=== PATIENT | male | born 1970 | race Caucasian/White ===

== ENCOUNTER 2023-06-26 07:36 | Inpatient (IN) ==
[2023-06-26 07:49] VITALS: BMI 28.7
--- NOTE | 2023-06-26 07:52 | EKG ---
Test Reason : cp Blood Pressure : */* mmHG Vent. Rate : 81 BPM Atrial Rate : 81 BPM P-R Int : 154 ms QRS Dur : 86 ms QT Int : 372 ms P-R-T Axes : 68 60 30 degrees QTc Int : 432 ms Normal sinus rhythm Nonspecific ST abnormality Abnormal ECG No previous ECGs available Confirmed by Igor Paul ([id number]) on 06/26/2023 8:32:00 AM Referred By: Confirmed By: Igor Paul
--- NOTE | 2023-06-26 08:28 | DR.CP ---
HPI Time Seen Time Seen by Provider: 06/26/23 08:07 PCP Primary Care Physician: NFD Complaint Chief Complaint Doctor Comments: 53 y/o male presents for evaluation. Has been having chest discomfort off and on over the past 2 weeks. Nothing brings it on. Has sharp pain, left anterior chest. Does not radiate. Nothing makes it better, nothing makes it worse. Has some associated left arm tingling numbness, diaphoresis at times. Patient with history of hypertension, has been off blood pressure medicines for a bit. Still smokes. No fever, chills, cough. No bowel or bladder issues. 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 Patient also states he has had frontal headache x 1 week. Hx of HTN and hasn't been taking medications. COVID-19 Coronavirus risk:travel/contact w/high risk person: No Has patient experienced Coronavirus symptoms: No Reviewed Nurses Notes Review: Yes Source History Provided: Patient Mode of Arrival Mode of Arrival: Ambulatory Timing Onset of Chief Complaint: 06/19/23 Location Chest Pain Radiation Location: None Associated Signs and Symptoms Associated Signs and Symptoms: None PMH PMH Past Medical History: Yes Past Medical History: Hypertension Past Surgical History: Yes Surgical History: Ortho Surgery Family History History of Family Medical Conditions: Yes Family Medical History: Diabetes Mellitus, Coronary Artery Disease and Hypertension Social History Does patient currently use any type of tobacco product: Yes Have you used tobacco products in the last 12 months: Yes Type of Tobacco Use: Cigarettes Does any household member use tobacco: Yes Alcohol Use: Occasionally Do you use any recreational Drugs:: No Lives With: Alone Lives Where: motel Travel Risk Coronavirus risk:travel/contact w/high risk person: No Has patient experienced Coronavirus symptoms: No Infectious screening In the last 2 months have you had wt loss of >10#?: NO Have you had fever, night sweats or hemotysis?: No Have you traveled outside the country in the last 6 months?: No Isolation: Standard ROS Review of Systems Constitutional: Diaphoresis Eyes: No Symptoms Reported ENTM: No Symptoms Reported Respiratoy: No Symptoms Reported Cardiovascular: See HPI Gastrointestinal/Abdominal: No Symptoms Reported Genitourinary: No Symptoms Reported Neurological: No Symptoms Reported Musculoskeletal: No Symptoms Reported Integumentary: No Symptoms Reported All Other Systems: Reviewed and Negative PE Vitals Vitals: Vital Signs Temperature 98.2 F Pulse Rate 75 Pulse Rate 67 Pulse Rate 65 Pulse Rate 62 Pulse Rate 75 Pulse Rate 69 Pulse Rate 68 Pulse Rate 74 Pulse Rate 73 Pulse Rate 75 Pulse Rate 70 Pulse Rate 70 Pulse Rate 75 Pulse Rate 82 Pulse Rate 80 Pulse Rate 82 Pulse Rate 78 Pulse Rate 76 Pulse Rate 77 Pulse Rate 86 Pulse Rate 84 Respiratory Rate 14 Respiratory Rate 10 Respiratory Rate 10 Respiratory Rate 9 Respiratory Rate 23 Respiratory Rate 18 Respiratory Rate 14 Respiratory Rate 16 Respiratory Rate 20 Respiratory Rate 18 Respiratory Rate 19 Respiratory Rate 30 Respiratory Rate 31 Respiratory Rate 20 Respiratory Rate 12 Respiratory Rate 21 Respiratory Rate 13 Respiratory Rate 30 Respiratory Rate 20 Blood Pressure 151/91 Blood Pressure 165/106 Blood Pressure 178/102 Blood Pressure 178/107 Blood Pressure 190/112 Blood Pressure 183/114 Blood Pressure 176/103 Blood Pressure 175/101 Blood Pressure 175/101 Blood Pressure 186/93 Blood Pressure 186/93 Blood Pressure 199/111 Blood Pressure 199/11 Blood Pressure 182/101 Blood Pressure 182/101 Blood Pressure 171/107 O2 Sat by Pulse Oximetry 96 O2 Sat by Pulse Oximetry 99 O2 Sat by Pulse Oximetry 99 O2 Sat by Pulse Oximetry 99 O2 Sat by Pulse Oximetry 99 O2 Sat by Pulse Oximetry 97 O2 Sat by Pulse Oximetry 99 O2 Sat by Pulse Oximetry 100 O2 Sat by Pulse Oximetry 100 O2 Sat by Pulse Oximetry 96 O2 Sat by Pulse Oximetry 98 O2 Sat by Pulse Oximetry 98 O2 Sat by Pulse Oximetry 97 O2 Sat by Pulse Oximetry 99 O2 Sat by Pulse Oximetry 99 O2 Sat by Pulse Oximetry 99 O2 Sat by Pulse Oximetry 98 O2 Sat by Pulse Oximetry 97 O2 Sat by Pulse Oximetry 99 O2 Sat by Pulse Oximetry 99 O2 Sat by Pulse Oximetry 98 General General Appearance: Alert and In No Apparent Distress Eyes Eye exam: PERRL and EOMI ENT ENT Exam: Mucous Membranes Moist Chest Chest Inspection: Normal Inspection; negative Tenderness Respiratory Respiratory Exam: Normal Lung Sounds Bilat; negative Accessory Muscle Use or Respiratory Distress Cardiovascular Cardiovascular Exam: Regular Rate, Normal Rhythm and Normal Heart Sounds Abdominal Exam Abdominal Exam: Normal Bowel Sounds and Soft; negative Tenderness Extremities Extremities Exam: Normal Inspection; negative Edema Neurologic Neurological Exam: Alert, Oriented X3 and CN II-XII Intact; negative Motor Sensory Deficit Skin Skin Exam: Warm and Dry COURSE Treatment Treatment: 53-year-old male with intermittent chest pain over the past 2-weeks. Currently doing better. Job made him come in to get looked at, got sent home early yesterday. Physical exam benign. BP elevated. Work-up initiated. Patient given IV hydralazine. 1005 -EKG without obvious ischemic changes. Chest x-ray with COPD changes, nothing acute. Labs overall acceptable except for elevated troponin, 140. Has been having chest pain off and on for the past 2 weeks, was worsened at 230 this AM, better on arrival to the ER. BP down a bit with the hydralazine, still elevated. Given metoprolol 5 mg IV, given PO ASA. BP still elevated. Patient remains free of chest pain. Recommend admission for further treatment of his hypertensive urgency and further evaluation for his probable recent non-STEMI. Discussed with Dr Torres, internal salesperson, accepts the admission. [facility] Labs Reviewed Laboratory Results Reviewed?: Yes 06/26/23 08:11 06/26/23 08:11 Laboratory: WBC 7.6 X10^3/uL (3.6-10.0) 06/26/23 08:11 RBC 5.62 X10^6/uL (4.7-6.0) 06/26/23 08:11 Hgb 17.7 g/dL (13.5-18.0) 06/26/23 08:11 Hct 52.1 % (42.0-54.0) 06/26/23 08:11 MCV 92.8 fL (80.0-100.0) 06/26/23 08:11 MCH 31.5 pg (27.0-34.0) 06/26/23 08:11 MCHC 34.0 g/dL (33.0-35.0) 06/26/23 08:11 RDW 14.9 % (11.6-16.5) 06/26/23 08:11 Plt Count 272 X10^3/uL (150.0-450.0) 06/26/23 08:11 MPV 8.0 fL (7.4-11.0) 06/26/23 08:11 Neut % (Auto) 55.2 % (42.0-75.0) 06/26/23 08:11 Lymph % (Auto) 34.0 % (21.0-51.0) 06/26/23 08:11 [place] % (Auto) 7.4 % (0.0-13.0) 06/26/23 08:11 Eos % (Auto) 2.8 % (0.9-2.9) 06/26/23 08:11 Baso % (Auto) 0.6 % (0.2-1.0) 06/26/23 08:11 Neut # (Auto) 4.2 x10^3/uL (2.2-4.8) 06/26/23 08:11 Lymph # (Auto) 2.6 X10^3/uL (1.3-2.9) 06/26/23 08:11 [place] # (Auto) 0.6 x10^3/uL (0.3-0.8) 06/26/23 08:11 Eos # (Auto) 0.2 x10^3/uL (0.0-0.2) 06/26/23 08:11 Baso # (Auto) 0.0 X10^3/uL (0.0-0.1) 06/26/23 08:11 Absolute Nucleated RBC 0.1 /100WBC 06/26/23 08:11 Sodium 140 mmol/L (136-145) 06/26/23 08:11 Corrected Sodium 140 mmol/L (136-145) 06/26/23 08:11 Potassium 3.8 mmol/L (3.5-5.1) 06/26/23 08:11 Chloride 105 mmol/L (98-107) 06/26/23 08:11 Carbon Dioxide 27.6 mmol/L (21-32) 06/26/23 08:11 BUN 10 mg/dL (7-18) 06/26/23 08:11 Creatinine 0.95 mg/dL (0.70-1.30) 06/26/23 08:11 Est GFR (MDRD) Af Amer > 60 (>60) 06/26/23 08:11 Est GFR (MDRD) Non-Af > 60 (>60) 06/26/23 08:11 Glucose 117 mg/dL (65-99) H 06/26/23 08:11 Calcium 8.6 mg/dL (8.5-10.1) 06/26/23 08:11 Corrected Calcium TNP 06/26/23 08:11 Total Bilirubin 0.50 mg/dL (0.2-1.0) 06/26/23 08:11 AST 23 Units/L (15-37) 06/26/23 08:11 ALT 19 Units/L (12-78) 06/26/23 08:11 Alkaline Phosphatase 76 Units/L (46-116) 06/26/23 08:11 Troponin I High Sens 139.6 ng/L (4.0-60.0) H* 06/26/23 10:42 Total Protein 7.0 g/dL (6.4-8.2) 06/26/23 08:11 Albumin 3.4 g/dL (3.4-5.0) 06/26/23 08:11 Globulin 3.6 g/dL (2.5-4.5) 06/26/23 08:11 Albumin/Globulin Ratio 0.9 Ratio (1.1-2.1) L 06/26/23 08:11 Lipase 102 Units/L (73-393) 06/26/23 08:11 + elevated troponin - 140. XRAY XRAY Interpreted by: Self X-ray Results: Chest x-ray with COPD changes, no acute abnormalities EKG Rate: 81 [place]: Normal Rhythm: NSR ST: Normal Opioid Opioid Risk Tool Age (Ang box if 16-45): No History of Preadolescent Sexual Abuse: No Total: 0 Total Score Risk Category: Low Risk Copyright: [place] predicting aberrant behaviors Discharge Plan Diagnosis Discharge Problem: Hypertensive urgency, Recent non-ST elevation myocardial infarction (NSTEMI) Discharge Plan Patient Disposition: 09 ADMITTED INPATIENT Condition: Stable Orders to Discharge Patient Discharge Orders: Transfer (Routine); Ordered 06/26/23 Ordered By: Torres Pak
[2023-06-26] MEDS ORDERED: APRESOLINE INJ 20 MG VIAL IVP ONE (08:32)
[2023-06-26] MEDS ORDERED: APRESOLINE INJ 20 MG VIAL ONE ×2 (08:35→10:18)
[2023-06-26 08:49] LABS: BASOPHILS % (AUTO) 0.6 % (0.2-1.0); EOSINOPHILS # (AUTO) 0.2 x10^3/uL (0.0-0.2); EOSINOPHILS % (AUTO) 2.8 % (0.9-2.9); HEMATOCRIT 52.1 % (42.0-54.0); HEMOGLOBIN 17.7 g/dL (13.5-18.0); LYMPHOCYTES # (AUTO) 2.6 X10^3/uL (1.3-2.9); MEAN CORPUSCULAR HEMOGLOBIN 31.5 pg (27.0-34.0); MEAN CORPUSCULAR VOLUME 92.8 fL (80.0-100.0); MONOCYTES # (AUTO) 0.6 x10^3/uL (0.3-0.8); MONOCYTES % (AUTO) 7.4 % (0.0-13.0); NEUTROPHILS # (AUTO) 4.2 x10^3/uL (2.2-4.8); NEUTROPHILS % (AUTO) 55.2 % (42.0-75.0); PLATELET COUNT 272 X10^3/uL (150.0-450.0); RED BLOOD COUNT 5.62 X10^6/uL (4.7-6.0); RED CELL DISTRIBUTION WIDTH 14.9 % (11.6-16.5); WHITE BLOOD COUNT 7.6 X10^3/uL (3.6-10.0)
[2023-06-26 09:10] LABS: ALANINE AMINOTRANSFERASE 19 Units/L (12-78); ALBUMIN 3.4 g/dL (3.4-5.0); ALKALINE PHOSPHATASE 76 Units/L (46-116); ASPARTATE AMINO TRANSFERASE 23 Units/L (15-37); BLOOD UREA NITROGEN 10 mg/dL (7-18); CALCIUM 8.6 mg/dL (8.5-10.1); CARBON DIOXIDE 27.6 mmol/L (21-32); CHLORIDE 105 mmol/L (98-107); COR NA(FOR HYPERGLY) 140 mmol/L (136-145); CREATININE 0.95 mg/dL (0.70-1.30); GLUCOSE 117 mg/dL (65-99); LIPASE 102 Units/L (73-393); POTASSIUM 3.8 mmol/L (3.5-5.1); SODIUM 140 mmol/L (136-145); eGFR NON BLACK RACES > 60 (>60)
[2023-06-26] MEDS ORDERED: ASPIRIN ONE (09:27)
[2023-06-26] MEDS ORDERED: ASPIRIN PO ONE (09:31)
[2023-06-26] MEDS ORDERED: LEVSIN/MAALOX/LIDOC VISC PO ONE (09:36)
[2023-06-26] MEDS ORDERED: LOPRESSOR INJ 5 MG AMP IVP ONE (09:41)
[2023-06-26] MEDS ORDERED: LOPRESSOR INJ 5 MG AMP ONE (09:48)
[2023-06-26] MEDS: APRESOLINE INJ 20 MG VIAL IVP ONE ×2 (10:20→10:23)
[2023-06-26] MEDS ORDERED: NORVASC TAB 5 MG PO ONE (11:13)
[2023-06-26] MEDS ORDERED: NORVASC TAB 5 MG ONE (11:17)
[2023-06-26] MEDS ORDERED: CONSULT PHARMACY - POTASSIUM & MAGNESIUM XX SCH (12:00)
[2023-06-26] MEDS ORDERED: CATAPRES TAB 0.1 MG PO ONE (12:01)
[2023-06-26] MEDS ORDERED: K-DUR TAB 20 MEQ PO SCH (13:00)
--- NOTE | 2023-06-26 13:32 | DR.CONSULT ---
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 lipids, no DM- exertional sx of cp last few weeks- occ assoc w sob/sweating-yesterday lasted few hours- came to er as boss wouldnt let him work- bp as high as 190- ekg: minor st abnl- labs had 2 trops at 140- no ck done Past Medical History Past Medical History: Hypertension Past Surgical History Surgical History: Ortho Surgery Family History Family Medical History: Diabetes Mellitus and Hypertension Social History Does patient currently use any type of tobacco product: Yes Have you used tobacco products in the last 12 months: Yes Type of Tobacco Use: Cigarettes Does any household member use tobacco: Yes Alcohol Use: DAILY Drug Use: None Medications Home Medications: No Known Allergies Allergy (Verified 06/26/23 08:08) CONTINUE taking the following medications NK 06/26/23 [History] Physical Exam Vital Signs: Vital Signs Temperature 97.7 F Temperature 97.7 F Temperature 97.7 F Temperature 98.2 F Pulse Rate [Bilateral Brachial 77 ] Pulse Rate [Bilateral Brachial 66 ] Pulse Rate [Bilateral Brachial 66 ] Pulse Rate 69 Pulse Rate 75 Pulse Rate 67 Pulse Rate 65 Pulse Rate 62 Pulse Rate 75 Pulse Rate 69 Pulse Rate 68 Pulse Rate 74 Pulse Rate 73 Pulse Rate 75 Pulse Rate 70 Pulse Rate 70 Pulse Rate 75 Pulse Rate 82 Pulse Rate 80 Pulse Rate 82 Pulse Rate 78 Pulse Rate 76 Pulse Rate 77 Pulse Rate 86 Pulse Rate 84 Respiratory Rate 20 Respiratory Rate 20 Respiratory Rate 20 Respiratory Rate 15 Respiratory Rate 14 Respiratory Rate 10 Respiratory Rate 10 Respiratory Rate 9 Respiratory Rate 23 Respiratory Rate 18 Respiratory Rate 14 Respiratory Rate 16 Respiratory Rate 20 Respiratory Rate 18 Respiratory Rate 19 Respiratory Rate 30 Respiratory Rate 31 Respiratory Rate 20 Respiratory Rate 12 Respiratory Rate 21 Respiratory Rate 13 Respiratory Rate 30 Respiratory Rate 20 Blood Pressure [Left Arm] 143/86 Blood Pressure [Left Arm] 156/92 Blood Pressure [Left Arm] 187/107 Blood Pressure 156/92 Blood Pressure 151/91 Blood Pressure 165/106 Blood Pressure 178/102 Blood Pressure 178/107 Blood Pressure 190/112 Blood Pressure 183/114 Blood Pressure 176/103 Blood Pressure 175/101 Blood Pressure 175/101 Blood Pressure 186/93 Blood Pressure 186/93 Blood Pressure 199/111 Blood Pressure 199/11 Blood Pressure 182/101 Blood Pressure 182/101 Blood Pressure 171/107 O2 Sat by Pulse Oximetry 98 O2 Sat by Pulse Oximetry 98 O2 Sat by Pulse Oximetry 98 O2 Sat by Pulse Oximetry 98 O2 Sat by Pulse Oximetry 96 O2 Sat by Pulse Oximetry 99 O2 Sat by Pulse Oximetry 99 O2 Sat by Pulse Oximetry 99 O2 Sat by Pulse Oximetry 99 O2 Sat by Pulse Oximetry 97 O2 Sat by Pulse Oximetry 99 O2 Sat by Pulse Oximetry 100 O2 Sat by Pulse Oximetry 100 O2 Sat by Pulse Oximetry 96 O2 Sat by Pulse Oximetry 98 O2 Sat by Pulse Oximetry 98 O2 Sat by Pulse Oximetry 97 O2 Sat by Pulse Oximetry 99 O2 Sat by Pulse Oximetry 99 O2 Sat by Pulse Oximetry 99 O2 Sat by Pulse Oximetry 98 O2 Sat by Pulse Oximetry 97 O2 Sat by Pulse Oximetry 99 O2 Sat by Pulse Oximetry 99 O2 Sat by Pulse Oximetry 98 alert ox3 nad looks older no bruits clear lungs rrr soft abdomen no edema/good pulses Plan (1) Hypertensive urgency: Status: Acute (2) Recent non-ST elevation myocardial infarction (NSTEMI): Status: Acute Narrative Support Text: 2 trops the same- will follow and add ck/lipids- will treat w asa/bb/ccb- get echo- low titer to send for cath- ischemic eval decision pending labs/ekg
[2023-06-26] MEDS: LOPRESSOR TAB 25 MG PO SCH ×2 (14:10→20:08)
--- NOTE | 2023-06-26 14:33 | RAD ---
EXAM:CHEST, 1 VIEWHISTORY:CHEST PAIN;COMPARISON:NoneFINDINGS:The cardiomediastinal silhouette is normal in size.No acute airspace disease. No pneumothorax or effusion.No acute osseous abnormality.IMPRESSION:No acute cardiopulmonary disease.THIS IS AN ELECTRONICALLY VERIFIED FINAL [id number]/2023 2:30 PM - Electronically signed by Vel Lopez MD
--- NOTE | 2023-06-27 06:30 | EKG ---
Test Reason : chest pain Blood Pressure : */* mmHG Vent. Rate : 61 BPM Atrial Rate : 61 BPM P-R Int : 172 ms QRS Dur : 90 ms QT Int : 442 ms P-R-T Axes : 69 49 36 degrees QTc Int : 444 ms Normal sinus rhythm Septal infarct , age undetermined Abnormal ECG When compared with ECG of 26-JUN-2023 07:49, No significant change was found Confirmed by Hussain Field MD ([id number]) on 06/27/2023 6:42:16 AM Referred By: Confirmed By: Hussain Field MD
[2023-06-27 06:36] LABS: BASOPHILS # (AUTO) 0.1 X10^3/uL (0.0-0.1); BASOPHILS % (AUTO) 0.6 % (0.2-1.0); EOSINOPHILS # (AUTO) 0.2 x10^3/uL (0.0-0.2); EOSINOPHILS % (AUTO) 2.1 % (0.9-2.9); HEMATOCRIT 50.6 % (42.0-54.0); HEMOGLOBIN 17.1 g/dL (13.5-18.0); LYMPHOCYTES # (AUTO) 2.6 X10^3/uL (1.3-2.9); LYMPHOCYTES % (AUTO) 30.4 % (21.0-51.0); MEAN CORPUSCULAR HEMOGLOBIN 31.8 pg (27.0-34.0); MEAN CORPUSCULAR HGB CONC 33.7 g/dL (33.0-35.0); MEAN CORPUSCULAR VOLUME 94.4 fL (80.0-100.0); MEAN PLATELET VOLUME 7.7 fL (7.4-11.0); MONOCYTES # (AUTO) 0.7 x10^3/uL (0.3-0.8); MONOCYTES % (AUTO) 7.9 % (0.0-13.0); PLATELET COUNT 267 X10^3/uL (150.0-450.0); RED BLOOD COUNT 5.37 X10^6/uL (4.7-6.0); RED CELL DISTRIBUTION WIDTH 14.6 % (11.6-16.5); WHITE BLOOD COUNT 8.4 X10^3/uL (3.6-10.0)
[2023-06-27 06:48] LABS: ALANINE AMINOTRANSFERASE 14 Units/L (12-78); ALBUMIN 3.1 g/dL (3.4-5.0); ALKALINE PHOSPHATASE 68 Units/L (46-116); ASPARTATE AMINO TRANSFERASE 14 Units/L (15-37); BLOOD UREA NITROGEN 13 mg/dL (7-18); CALCIUM 8.7 mg/dL (8.5-10.1); CHLORIDE 105 mmol/L (98-107); CHOLESTEROL 163 mg/dL (0-200); COR CA(FOR HYPOALB) 9.4 mg/dL (8.5-10.1); GLUCOSE 101 mg/dL (65-99); HDL CHOLESTEROL 55 mg/dL (40-60); MAGNESIUM 1.9 mg/dL (2.0-2.9); SODIUM 140 mmol/L (136-145); TOTAL PROTEIN 6.6 g/dL (6.4-8.2); TRIGLYCERIDES 87 mg/dL (0-150); eGFR NON BLACK RACES > 60 (>60)
[2023-06-27] MEDS: LOPRESSOR TAB 25 MG PO SCH (08:57)
[2023-06-27] MEDS ORDERED: NORVASC TAB 5 MG PO SCH (09:00)
[2023-06-27] MEDS ORDERED: ASPIRIN EC 81 MG PO SCH (09:00)
[2023-06-27 09:19] VITALS: RESP 20; TEMP 98.1
[2023-06-27 13:15] VITALS: BP 162/94; PULSE 63; O2SAT 96
--- NOTE | 2023-06-27 13:28 | NOTE.SOAP ---
Soap Note Note for Day of Date of Exam: 06/27/23 Subjective Data Subjective Data: no cp Objective Data Objective Data: stable VS labs: ck normal - lipids not so bad [id number] hdl55 tg87 echo: normal lv/mild lvh trops all about same- not c/w mi - more c/w chronic leak from bad htn stress test : 6 minutes hr blunted due to bb on board- bp only to 160- no cp/no ekg changes- feel same to d/c on current meds ( asa BB ccb). stop smoking- told him to f/u woth me in few weeks Assessment Assessment: hypertensive heart disease/smoker Plan Plan: home on asa/bb/ccb. stop smokng
== END 2023-06-27 14:37 | disposition home or self-care (01) | DRG 305 ==
LOC: ER 07:36 → MED/SURG 11:12
PROVIDERS: ADMIT Internal Medicine; ATTEND Internal Medicine
DX: R07.89 Other chest pain; R20.0 Anesthesia of skin; R94.31 Abnormal electrocardiogram [ECG] [EKG]; Z72.0 Tobacco use; I10 Essential (primary) hypertension; I16.0 Hypertensive urgency; I25.2 Old myocardial infarction; J44.9 Chronic obstructive pulmonary disease, unspecified; R51.9 Headache, unspecified; Z91.14 Patient's other noncompliance with medication regimen